=== PATIENT | female | born 1955 | race Caucasian/White ===

== ENCOUNTER 2022-03-09 11:23 | Emergency (ER) | payer MEDICARE, OTHER ==
[2022-03-09 12:19] LABS: HEMOGLOBIN 16.2 gm/dl (12.3-15.3); RED BLOOD COUNT 4.95 M/UL (4.00-5.10); WHITE BLOOD COUNT 8.7 K/UL (4.5-11.0)
[2022-03-09 12:45] LABS: BUN/CREATININE RATIO 19 (0-10)
[2022-03-09] MEDS ORDERED: NITROSTAT0.4 MG SL (16:18)
[2022-03-09] MEDS ORDERED: LOPRESSOR 25 MG25 MG PO (16:18)
== END 2022-03-09 16:25 | disposition home or self-care (01) ==
LOC: ER1 11:23
PROVIDERS: Family Medicine
DX: R07.2 Precordial pain (principal); I10 Essential (primary) hypertension; F17.210 Nicotine dependence, cigarettes, uncomplicated; J44.9 Chronic obstructive pulmonary disease, unspecified; Z88.0 Allergy status to penicillin
CPT/HCPCS: 71045; 80053; 82550; 82553; 84484; 85025; 93005; 99285

== ENCOUNTER → 2022-03-16 | Outpatient (CLI) | payer MEDICARE, OTHER ==
[~2022-03-16] MED LIST: LOPRESSOR 25 MG25 MG PO; NITROSTAT0.4 MG SL
== END ==
LOC: HEART 5 13:14
DX: R07.9 Chest pain, unspecified (principal)